=== PATIENT | male | born 1985 | race Caucasian/White ===

== ENCOUNTER 2021-10-27 19:45 | Inpatient (IN) | payer OTHER, SELFPAY ==
[2021-10-27 19:45] VITALS: BP 137/81; PULSE 98; RESP 18; TEMP 36.7; O2SAT 98
[2021-10-27 19:48] VITALS: BMI 32.1
[2021-10-27 21:38] VITALS: BP 137/81; PULSE 98; RESP 18; TEMP 36.7
--- NOTE | 2021-10-27 23:48 | PC.ADMIT ---
Admission Note:Patient attempted suicide yesterday by hanging and he also said police but didn't expand on what that meant. He says his anxiety has been spiraling down for around 3 months. He states that he has horrible anxiety attacks that need no trigger. His chest gets real tight and the pain is severe until the anxiety becomes less. He reports having a stroke in May and his anxiety has been an issue since then. He states that he has been taking prozac and it was working well but the last 3 months it has not. It has caused him to have more suicidal ideations. The patient,Peng Mendoza,36 y/o, was given written information regarding hospital policies, unit procedures and contact persons. Patient's smoking status: . Vital Signs - 8 hr 10/27/21 19:45 10/27/21 21:38 Temperature 98.0 F 98.0 F Pulse Rate 98 98 Respiratory Rate 18 18 Blood Pressure 137/81 137/81 Pulse Oximetry 98
[2021-10-28 06:00] VITALS: RESP 15
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
[2021-10-28] MEDS: lisinopril 10 mg Tablet PO (08:39)
[2021-10-28] MEDS: aspirin 81 mg EC Tablet PO (08:39)
[2021-10-28] MEDS: fluoxetine 20 mg Capsule 40 MG PO (08:39)
[2021-10-28] MEDS: cetirizine 10 mg Tablet PO (08:39)
[2021-10-28 14:00] VITALS: BP 120/73; PULSE 80; RESP 16; TEMP 36.8; O2SAT 96
--- NOTE | 2021-10-28 14:39 | PC.SOCIAL ---
Patient attended and participated in group.
[2021-10-28 21:07] VITALS: BP 112/79; PULSE 85; RESP 16; TEMP 36.6; O2SAT 97
[2021-10-29 06:00] VITALS: BP 116/73; PULSE 70; RESP 18; TEMP 36.9; O2SAT 97
[2021-10-29] MEDS: aspirin 81 mg EC Tablet PO (08:27)
[2021-10-29] MEDS: fluoxetine 20 mg Capsule 40 MG PO (08:27)
[2021-10-29] MEDS: lisinopril 10 mg Tablet PO (08:27)
[2021-10-29] MEDS: cetirizine 10 mg Tablet PO (08:27)
[2021-10-29 13:59] VITALS: BP 133/82; PULSE 100; RESP 17; TEMP 36.8; O2SAT 98
--- NOTE | 2021-10-29 15:03 | P.NPUPN_ITS ---
Subjective NPU Subjective: He is doing much better. He has been in contact with many family members. Things are going well with his and he is more convinced that she is supportive. He believes that thinking that she was going to divorce him was something he concocted all in his head because of what his father is going through with his divorce. He is hoping that the 1 dose of Prozac 40 mg did something. He certainly did not have any side effects. He was educated more about the treatment of anxiety and the antidepressants. Mental Status Exam MSE Comments: This is a 36-year-old overweight male who appears approximately his stated age and is in no acute distress. He is pleasant and cooperative with the evaluation. He is fairly well groomed and dressed in hospital scrubs. He has good eye contact. psychomotor activity is normal. Speech is at a regular rate and rhythm, normal volume, good articulation, not pressured. Alert, oriented X3 Attention and concentration appears to be normal. Memory is intact Mood is depressed but much better Affect is euthymic. Thought process is logical and goal-directed. Thought content: Denies auditory and visual hallucinations. No delusions or paranoia are noted. He denies any suicidal ideation. he denies homicidal ideation. Fund of knowledge is average. Insight and judgment appear to be fairly good. Impulse control is fairly good. Cognition: Patient Appearance: Appropriate Ability to Follow Directions: Excellent Patient Orientation (long list): Person, Place and Year Comprehension Ability: No Impairment Hallucination Type: None Delusion Description: Not Present Thought Process: Appropriate Affect: Affect Description: Appropriate Behavior: Patient Behavior: Appropriate Speech Pattern: Appropriate Vitals/I&O/Wt Last Vital Signs Temp 98.2 F 10/29/21 13:59 Pulse 100 10/29/21 13:59 Resp 17 10/29/21 13:59 BP 133/82 10/29/21 13:59 Pulse Ox 98 10/29/21 13:59 Weight last 48 hrs Weight 104.326 kg A&P Assessment and plan (1) PTSD (post-traumatic stress disorder): Status: Acute (2) Major depressive disorder: Status: Acute (3) Suicidal ideation: Status: Acute Plan This is a 36-year-old male with a long history of anxiety which has been 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 Suicidal ideation has been gradually increasing over the last few months Plan: 1. Continue current medication. Increase Prozac to 40 mg. Trazodone for sleep 2. Continue every 15 minute checks for safety. 3. Encourage individual, group and milieu therapies. 4. Encourage sober living treatment after discharge at the highest level of care to which he is willing to commit. 5. We will monitor for safety for himself in the community prior to discharge. Involuntary Hold Information 96 Hour Hold: 96 Hour Involuntary Admission: No Attestations NPU Medical Necessity Statement*: Inpatient hospitalization is medically necessary and the clinically appropriate intervention at this time. We will initiate medications and make changes as indicated. Coding Level of Care Code Acute Mail Sorter And Delivery for Peyton Gutierrez Diagnoses PTSD (post-traumatic stress disorder) F43.10 Major depressive disorder F32.9 Suicidal ideation R45.863
[2021-10-29 21:06] VITALS: BP 130/79; PULSE 79; RESP 18; TEMP 37.2; O2SAT 99
[2021-10-30 06:00] VITALS: BP 115/72; PULSE 57; RESP 16; TEMP 36.7; O2SAT 98
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
[2021-10-30 07:55] VITALS: BP 115/72; PULSE 57; RESP 16; TEMP 36.7; O2SAT 98
[2021-10-30] MEDS: aspirin 81 mg EC Tablet PO (08:59)
[2021-10-30] MEDS: fluoxetine 20 mg Capsule 40 MG PO (08:59)
[2021-10-30] MEDS: cetirizine 10 mg Tablet PO (08:59)
[2021-10-30] MEDS: lisinopril 10 mg Tablet PO (08:59)
== END 2021-10-30 08:50 | disposition home or self-care (01) | DRG 882 ==
PROVIDERS: Admitting Provider Psychiatry & Neurology Psychiatry; Visit Provider Psychiatry & Neurology Psychiatry
DX: F43.10 Post-traumatic stress disorder, unspecified (principal); R45.851 Suicidal ideations; F41.9 Anxiety disorder, unspecified; F32.9 Major depressive disorder, single episode, unspecified; F90.9 Attention-deficit hyperactivity disorder, unspecified type; Z86.16 Personal history of COVID-19; Z79.82 Long term (current) use of aspirin; Z63.5 Disruption of family by separation and divorce; Z62.810 Personal history of physical and sexual abuse in childhood; Z86.73 Personal history of transient ischemic attack (TIA), and cerebral infarction without residual deficits; Z91.49 Other personal history of psychological trauma, not elsewhere classified
CPT/HCPCS: 97150; 97165